=== PATIENT | male | born 1975 | race Caucasian/White ===

== ENCOUNTER 2022-06-27 09:42 | Day surgery (SDC) | payer OTHER ==
[2022-06-27 10:50] LABS: Absolute Lymphocytes (CBC) 1.3 K/uL (0.7-4.9); Lymphocytes % 9.9 % (15.3-44.8); MCV 88.6 fL (80-100); MPV 7.4 fL (7.6-11.3); RBC Red Blood Cell Count 3.61 M/uL (4.33-5.43)
[2022-06-27 11:02] LABS: Potassium 4.8 mmol/L (3.5-5.1)
--- NOTE | 2022-06-27 11:17 | RAD REPORT ---
EXAM DESCRIPTION: RAD - Chest Single View - 06/27/2022 11:11 am CLINICAL HISTORY: pre op FOR REPLACEMENT PERITONEAL DIALYSIS CATH COMPARISON: No comparisons FINDINGS: Lines: Right IJ approach dialysis catheter with tip overlying the distal SVC. Lungs: Pulmonary vascular congestion. No consolidation or alveolar edema. Pleural: No significant pleural effusions or pneumothorax. Cardiac: Enlarged cardiopericardial silhouette. Bones: No acute fractures. Other: IMPRESSION: Pulmonary vascular congestion.
[2022-06-27] MEDS ORDERED: LIDOCAINE 1% MPF 5 ML VIAL ONE (11:27)
[2022-06-27] MEDS ORDERED: propofoL 200 MG/20 ML VIAL IV ONE ×2 (11:27→11:28)
[2022-06-27] MEDS ORDERED: MIDAZOLAM HCL 2 MG/2 ML INJ ONE (11:27)
[2022-06-27] MEDS ORDERED: FENTANYL CITR 100 MCG/2 ML ONE ×2 (11:27→14:24)
[2022-06-27] MEDS ORDERED: ROCURONIUM 50 MG/5 ML VIAL IV ONE (11:27)
[2022-06-27] MEDS ORDERED: NA CHLORIDE 0.9% 500 ML ONE (11:28)
[2022-06-27] MEDS ORDERED: CEFAZOLIN 2 GM IN 0.9% NACL 2 GM/100 ML BAG ONE (11:28)
[2022-06-27 12:20] LABS: SARS-CoV-2 Antigen Rapid Res Negative (Negative)
[2022-06-27] MEDS ORDERED: NS 0.9% VIAL 10 ML ONE (13:05)
[2022-06-27] MEDS ORDERED: HEPARIN 500 UNIT/5 ML SYR IV ONE (13:56)
[2022-06-27] MEDS ORDERED: BUPIVACAINE 0.25% PF 10 ML VIAL ONE (13:57)
[2022-06-27] MEDS ORDERED: GLYCOPYRROLATE 0.2 MG/ML SYR ONE (13:57)
[2022-06-27] MEDS ORDERED: NEOSTIGMINE 1 MG/ML -10 ML VIAL ONE (13:58)
--- NOTE | 2022-06-27 14:35 | P.OP ---
Preoperative diagnosis: Peritoneal Dialysis Catheter Dysfunction Postoperative diagnosis: Peritoneal Dialysis Catheter Dysfunction Primary procedure: Placement of RIGHT abdominal Tunneled Peritoneal Dialysis Catheter Secondary procedure: Removal of Tunneled Peritoneal Dialysis Cathter - LEFT Abdominal Anesthesia: GETA + Local Estimated blood loss: <10cc Specimen: catheter for ID only Findings: non-functional PD catheter Complications: None Drain(s): Other (Martines Tunneled PD catheter) Transferred to: Recovery Room Condition: Good
[2022-06-27] MEDS: HYDROMORPHONE HCL 1 MG/ML INJ ONE ×2 (15:07→15:17)
[2022-06-27] MEDS ORDERED: HYDROMORPHONE HCL 1 MG/ML INJ ONE (15:40)
[2022-06-27 16:57] VITALS: BP 109/73; TEMP 96.7; O2SAT 99
--- NOTE | 2022-06-28 02:15 | OP ---
Date of Procedure: 06/27/2022 Surgeon: Sukhi Mancia MD, Preoperative Diagnosis: Peritoneal dialysis catheter dysfunction. Postoperative Diagnosis: Peritoneal dialysis catheter dysfunction. Procedures Performed: 1.Laparoscopic placement of right abdominal tunneled peritoneal dialysis catheter. 2.Removal of previously placed left lower abdominal peritoneal dialysis catheter-nonfunctional. Anesthesia: General endotracheal plus local. Estimated Blood Loss: Less than 10 mL. Specimen: Catheter for ID only. Findings: Nonfunctional peritoneal dialysis catheter. Complications: None. Implants: Merit tunneled peritoneal dialysis catheter. Disposition: The patient was transferred to recovery room in good condition. Procedure In Detail: After informed consent was obtained, the patient was brought to the OR and prep ped and draped in the usual sterile fashion. After adequate anesthesia was achieved, the area in the left lower quadrant was anesthetized with 0.25% Marcaine and sharply incised. A 5 mm 0-degree optic al trocar was introduced into the abdomen without evidence of any complication. Insufflation obtaine d 15 mmHg at this time. No injury to vital structures upon entry into the abdomen. I inspected the previously placed peritoneal dialysis catheter and infused fluid through it, it went through with buddy e difficulty. There did not appear to be any obvious kinks in the intraperitoneal portion, but the c atheter was misplaced in the left iliac fossa. There may have been a kink in the tunneling tract. I could appreciate, however, that the flow was insufficient for peritoneal dialysis. As such, I opted to place a new peritoneal dialysis catheter. The patient was pre-stenciled for placement of a right lower abdominal peritoneal dialysis catheter. After the stent sling was appreciated, I made an inci kassi after appropriately anesthetizing the skin in this area and I placed the catheter introducer she ath at a 45 degrees angle aiming towards the sacrum. At this point, dilation was performed and then I advanced the catheter with a curl medially into the pelvis, placing the distal cuff into the rectus sheath. At this point, I placed a tunneling device on and tunneled the catheter out through the pre viously stenciled area and brought it out. At this point, air was emanating from the area as well as some intraperitoneal fluid. A cap was placed on this at this point. I then placed additional troca r in the left lower quadrant. This was similarly anesthetized and sharply incised. A 5 mm trocar wa s placed under direct vision without evidence of any complication. Catheter was optimally positioned at this point, using the ratcheted grasper into the deep space of the pelvis and I began infusion of 1 L of saline. Approximately 700 cc returned quite easily. The patient did have some residual in t he perihepatic spaces. Positioning of the patient, helped to some degree, but he did have significan t intraabdominal adiposity. As such, I found this was adequate amount of fluid and the required time to allow for optimal placement of the catheter. At this point, I removed the previously placed cath eter by first incising the cuff, which was palpable beneath the skin surface, making a counter incisi on over the skin, after appropriately anesthetizing it, and cutting this catheter at the cuff and rem oving this portion. I then dissected down to the rectus sheath and dissected the cuff out of the rec tus sheath at this point and removed the catheter in its entirety at this point and sent off for ID o nly. At this point, I used a Jose G suture passer to imbricate #1 Vicryl suture in an inter rupted fashion through this area to ensure good airtight closure and to prevent hernia formation as w ell, so that no fluid would drain from the tract as well. At this point, good hemostasis was achieve d. I decompressed the abdomen at this point, after the catheter was inspected and found to be in goo d position at the end of the procedure. The abdomen was completely desufflated under direct visualiz ation. All skin was then copiously irrigated and closed with interrupted rupert and sterile dressin g placed over top. The patient tolerated the procedure without any evidence of any complication and was transferred back in good condition. I then placed 2 cc of heparin super flush into the catheter and abdominal binder was available. The patient then was in the PACU in good condition. All counts were correct a t the end of the case. TK/MODL Voice ID: [id number] Report ID: [id number]
--- NOTE | 2022-06-30 08:16 | EKG ---
Test Date: 2022-06-27 Test Time: 11:03:27 Muck Farmer: ARELY MEASUREMENT RESULTS: Intervals: Rate: 60 LA: 146 QRSD: 144 QT: 424 QTc: 424 [place]: P: 5 LA: 146 QRS: 7 T: 10 INTERPRETIVE STATEMENTS: Normal sinus rhythm Right bundle branch block Abnormal ECG No previous ECG available for comparison Electronically Signed On 06-30-22 08:07:15 CDT by [place] Villagran
== END 2022-06-27 16:54 | disposition home or self-care (01) ==
LOC: OR 09:42
PROVIDERS: ATTEND Surgery
PROC: 0WHG43Z Insertion of Infusion Device into Peritoneal Cavity, Percutaneous Endoscopic Approach (ICD-10-PCS; 2022-06-27)
PROC: 0WPG03Z Removal of Infusion Device from Peritoneal Cavity, Open Approach (ICD-10-PCS; principal; 2022-06-27 13:00)
DX: Z49.02 Encounter for fitting and adjustment of peritoneal dialysis catheter (principal); N18.6 End stage renal disease; Z99.2 Dependence on renal dialysis; Z20.822 Contact with and (suspected) exposure to COVID-19
CPT/HCPCS: 93005; 85025; 80048; 36415; 82947 ×2; 71045; 87811; 36589; 49324; J2704; J2710; J3010 ×2; J1170 ×2; J0690; J1642; J7040; J2250